=== PATIENT | female | born 1945 | race Two or more races ===

== ENCOUNTER 2018-07-26 15:40 | Inpatient (IN) | payer OTHER, MEDICAID | END 2018-07-28 16:30 | disposition home or self-care (01) | LOC: ER 15:40 → TELE 07-27 10:10 → TELE-CENTR 07-27 17:32 | DX: K62.5 Hemorrhage of anus and rectum (principal); D62 Acute posthemorrhagic anemia; I10 Essential (primary) hypertension; E11.9 Type 2 diabetes mellitus without complications ==

== ENCOUNTER 2022-10-14 10:57 | Emergency (ER) | payer OTHER, MEDICAID ==
[~2022-10-14] VITALS: Ht 152.4 cm; Wt 115.0 kg
[~2022-10-14 10:57] MED LIST: ASPI81CH43 GT; ATEN-60 PO; BUPR-160 PO; DOCU100T15 PO; LORA-622 PO; MAGN400T40 PO; MELO1TAB56 PO; OMEP20TA PO; PRAV20TA3 PO
[2022-10-14 11:15] VITALS: BP 151/73
[2022-10-14 11:47] LABS: Basophils # (auto) 0.1 10 ^3/uL (0-0.2); Basophils % (auto) 0.7 % (0.0-2.0); Eosinophils # (auto) 0 10 ^3/uL (0-0.8); Eosinophils % (auto) 0.6 % (0.0-7.0); Hematocrit 38.8 % (36.0-46.0); Hemoglobin 12.7 g/dL (12.2-16.2); Lymphocytes # (auto) 1.5 10 ^3/uL (0.4-5.4); Lymphocytes % (auto) 21.7 % (10.0-50.0); Mean Corpuscular Hemoglobin 30.4 pg (28.0-32.0); Mean Corpuscular Hgb Conc. 32.8 g/dL (32.0-36.0); Mean Corpuscular Volume 92.6 fL (80.0-100.0); Monocytes # (auto) 0.3 10 ^3/uL (0-1.3); Monocytes % (auto) 4.5 % (0.0-12.0); Neutrophils # (auto) 5.1 10 ^3/uL (1.6-8.6); Neutrophils % (auto) 72.5 % (37.0-80.0); Nucleated Red Blood Cells % 0.1 %; Red Blood Cells 4.19 10^6/uL (4.0-5.20)
[2022-10-14 12:00] LABS: Albumin 3.8 g/dL (3.4-5.0); Calcium 9.1 mg/dL (8.5-10.1); Potassium 4.3 mmol/L (3.5-5.1)
[2022-10-14 12:11] LABS: BUN/Creatinine Ratio 19.8 (10.0-20.0); Bilirubin, Total 0.2 mg/dL (0.2-1.0); Total Protein 7.6 g/dL (6.4-8.2)
[2022-10-14 12:40] LABS: Urine Bacteria NONE SEEN /hpf (None Seen); Urine Blood Negative /uL (Negative); Urine Specific Gravity 1.011 (1.001-1.035); Urine WBC <1 /hpf (0 - 5)
== END 2022-10-14 15:01 | disposition left against medical advice (07) ==
LOC: ER 10:57
DX: R22.43 Localized swelling, mass and lump, lower limb, bilateral (principal); R30.0 Dysuria; Z53.21 Procedure and treatment not carried out due to patient leaving prior to being seen by health care provider
CPT/HCPCS: 36415; 71045; 80053; 81001; 83605; 83735; 84484; 85025; 93005

== ENCOUNTER 2024-09-05 10:30 | Emergency (ER) | payer OTHER, MEDICAID ==
[~2024-09-05] VITALS: Ht 121.9 cm; Wt 87.9 kg
[~2024-09-05 10:30] MED LIST changes: -BUPR-160 PO; +BUPR-346 PO; +MELO15TA29 PO; -MELO1TAB56 PO
--- NOTE | 2024-09-05 11:18 | ED.PDOC ---
Joyce. trauma (HPI) HPI Comments 79y F who presents to the ED for chief complaint of fall injury. Pt states she had mechanical fall at approx 0930 this AM. Pt states she tripped and fell on doorstep as she fell to the floor, she landed on her L hand to help break her fall and states during fal, she grazed the L side of her face with noted bruise on L cheek but no noted loss of consciousness. Pt states since fall, she has been having L arm pain, rating the pain 10/10, constant, non-radiating, with no associated exacerbating or relieving factors. Pt otherwise denies headache, dizziness, nausea, vomiting, chest pain, shortness of breath, or any associated symptoms. Pt in the ED, has noted BP of 144/51 but otherwise has noted stable vitals in the ED. Pt in the ED, is noted to walk with walker. Pt otherwise denies any other symptoms at this time. Chief Complaint: Fall Injury Time Seen by MD: 11:15 Primary Care Provider: LUL Reviewed notes: Nurses Notes, Medications, Allergies Allergies: Coded Allergies: NO KNOWN ALLERGIES (Unverified , 07/27/18) Home Meds Active Scripts Hydrocodone-Acetaminophen (Hydrocodone Bitartrate/AC 5-325 mg) 1 Tab Tab, 1 TAB PO Q8HP PRN for 7 Days, #21 TAB Prov:GLENNA PINEDA MD 09/05/24 Reported Medications Meloxicam (Meloxicam) 15 Mg Tab, 15 MG PO, TAB 07/27/18 Loratadine (Claritin) 10 Mg Tab, 10 MG PO, TAB 07/27/18 Aspirin (Asa) 81 Mg Ch, 81 MG GT DAILY 07/27/18 Pravastatin Sodium (PRAVACHOL TABLET) 20 Mg Tb, 1 TAB PO DAILY, #30 TAB 5 Refills 07/27/18 Docusate Sodium (Docusate Sodium) 100 Mg Tab, 100 MG PO BIDP PRN for FOR CONSTIPATION for 30 Days, MG 07/27/18 Atenolol (Atenolol) 25 Mg Tab, 25 MG PO BID for 30 Days, MG 07/27/18 Omeprazole (Gnp Omeprazole) 20 Mg Tab, 1 TAB PO DAILY, #90 TAB 1 Refill 07/27/18 Bupropion Hcl (Bupropion Hcl) 100 Mg Tab, 150 MG PO BID for 30 Days, MG 07/27/18 Magnesium Oxide (MAGNESIUM OXIDE) 400 Mg Tab, 1 TAB PO BID, #60 TAB 5 Refills 07/27/18 Information Source: Patient Mode of Arrival: Ambulatory Brought in by: self Severity: Moderate Timing: Hours Duration: Since onset Prehospital treatment: None Location: (L) Shoulder Location of laceration: None Mechanism: Fall Associated signs and symtoms: None Past Medical History PAST MEDICAL HISTORY: Anemia, Anxiety, Arthritis, DM, HTN Surgical History: Hysterectomy, Tubal Ligation NUTRITION CONSULTANT History: Denies all NUTRITION CONSULTANT Hx Family History Family History: Unknown Social History Smoker: Non-Smoker Alcohol: Denies ETOH Use Drugs: Denies Drug Use Lives In: Home Constitutional: denies: chills, diaphoresis, fatigue, fever, malaise, sweats, weakness, others EENTM: denies: blurred vision, double vision, ear bleeding, ear discharge, ear drainage, ear pain, ear ringing, eye pain, eye redness, hearing loss, mouth pain, mouth swelling, nasal discharge, nose bleeding, nose congestion, nose pain, photophobia, tearing, throat pain, throat swelling, voice changes, others Respiratory: denies: cough, hemoptysis, orthopnea, SOB at rest, shortness of breath, SOB with excertion, stridor, wheezing, others Cardiovascular: denies: chest pain, dizzy spells, diaphoresis, Dyspnea on exertion, edema, irregular heart beat, left arm pain, lightheadedness, palpitations, PND, syncope, others Gastrointestinal: denies: abdomen distended, abdominal pain, blood streaked bowels, constipated, diarrhea, dysphagia, difficulty swallowing, hematemesis, melena, nausea, poor appetite, poor fluid intake, rectal bleeding, rectal pain, vomiting, others Genitourinary: denies: abnormal vagina bleeding, burning, dyspareunia, dysuria, flank pain, frequency, hematuria, incontinence, pain, , vagina discharge, urgency, others Neurological: denies: dizziness, fainting, headache, left sided numbness, left sided weakness, numbness, paresthesia, pre-existing deficit, right sided numbness, right sided weakness, seizure, speech problems, tingling, tremors, weakness, others Musculoskeletal: reports: joint pain (L shoulder); denies: back pain, gout, joint swelling, muscle pain, muscle stiffness, neck pain, others Integumetry: denies: bruises, change in color, change in hair/nails, dryness, laceration, lesions, lumps, rash, wounds, others Allergic/Immunocompromised: denies: Difficulty Healing, Frequent Infections, Hives, Itching, others Hematologic/Lymphatic: denies: anemia, blood clots, easy bleeding, easy bruising, swollen glands, others Endocrine: denies: excessive hunger, excessive sweating, excessive thirst, excessive urination, flushing, intolerance to cold, intolerance to heat, unexplained weight gain, unexplained weight loss, others Psychiatric: denies: anxiety, bipolar disorder, depression, hopeless, panic disorder, schizophrenia, sleepless, suicidal, others All Other Systems: Reviewed and Negative Physical Exam General Appearance: Moderate Distress HEENT: Normal ENT Inspection, Pharynx Normal, TMs Normal Neck: Full Range of Motion, Non-Tender, Normal, Normal Inspection Respiratory: Chest Non-Tender, Lungs Clear, No Accessory Muscle Use, No Respiratory Distress, Normal Breath Sounds Cardiovascular: No Edema, No JVD, No Murmur, No Gallop, Normal Peripheral Pulses, Regular Rate/Rhythm Breast Exam: Deferred Gastrointestinal: No Organomegaly, Non Tender, No Pulsatile Mass, Normal Bowel Sounds, Soft Genitalia: Deferred Pelvic: Deferred Rectal: Deferred Extremities: No calf tenderness, Normal capillary refill, No pedal edema Musculoskeletal : Location: Left Extremity Location: Arm Apperance: Swelling, Limited ROM, Tenderness: Severe Neurologic: Alert, brazing machine operator automatic II-XII nml as Tested, No Motor Deficits, Normal Affect, Normal Mood, No Sensory Deficits Cerebellar Function: Normal Reflexes: Normal Skin: Dry, Normal Color, Warm Lymphatic: No Adenopathy Was a procedure done? Was a procedure done?: No Differential Diagnosis Multiple Trauma: Closed Head Injury, Fractures, Abrasions, Contusion, Hematoma X-Ray, Labs, Meds, VS Vital Signs Date Time Temp Pulse Resp B/P (MAP) Pulse Ox O2 Delivery O2 Flow Rate FiO2 09/05/24 10:51 97.7 71 19 144/51 (82) 98 97.7 XY L HUMERUS XRAY, IMPRESSION: Acute distal humerus fracture. At this time, we did send the results to the orthopedic surgeon The patient was being discharged after being splinted and placed in a sling The patient was given [place] here in the emergency department's as well as prescription for [place] The patient will return to the emergency department's the condition worsens. Images Reviewed?: Images reviewed and evaluated by me Time of 1ST Reevaluation: 11:45 Reevaluation 1ST: Unchanged Patient Education/Counseling: Diagnosis, Treatment, Prognosis, Need For Follow Up Family Education/Counseling: No Family Present Additional Information -Reviewed patient's previous visit(s): - The following tests were ordered, and results were reviewed by me: Lt humerus x-ray - Additional information was gathered from interviewing the following independent Historian: none - I reviewed and agreed with the following test results read by other provider: none - I discussed treatments and results with medical personnel and: patient Comprehensive systems review obtained and negative except for what is stated in the HPI. Departure 1 Departure Time of Disposition: 11:56 Impression: Primary Impression: Left humeral fracture Qualified Codes: S42.492A - Other displaced fracture of lower end of left humerus, initial encounter for closed fracture Disposition: 01 HOME / SELF CARE / HOMELESS Condition: Fair e-Prescriptions Hydrocodone-Acetaminophen (Hydrocodone Bitartrate/AC 5-325 mg) 1 Tab Tab 1 TAB PO Q8HP PRN for 7 Days, #21 TAB Prov: GLENNA PINEDA MD 09/05/24 Discharged With: Self Critical Care Note Critical Care Time?: No Stability Stability form required: No Heart Score Heart Score: Heart Score Response (Comments) Value History N/A 0 EKG N/A 0 Age N/A 0 Risk Factors N/A 0 Troponin N/A 0 Total 0 I personally scribed for GLENNA PINEDA MD (BONY) on 09/05/24 at 11:18. Electronically submitted by Fernando Peña ([email or web address]). I personally scribed for GLENNA PINEDA MD (BONY) on 09/05/24 at 11:19. E lectronically submitted by Fernando Peña ([email or web address]). I personally scribed for GLENNA PINEDA MD (BONY) on 09/05/24 at 11:48. Electronically submitted by Fernando JERONIMO). GLENNA PINEDA MD Sep 05, 2024 11:18
--- NOTE | 2024-09-05 11:24 | DVH ---
XY L HUMERUS XRAY, INDICATION: TRAUMA TECHNICAL DATA: Frontal and lateral views were obtained of the left humerus. COMPARISON: None FINDINGS: There is acute oblique fracture of the distal humeral diaphysis. IMPRESSION: Acute distal humerus fracture.
[2024-09-05] MEDS ORDERED: HYDR-4902 PO (11:52)
[2024-09-05 12:15] VITALS: BP 140/56; PULSE 82; RESP 18; TEMP 97.9; O2SAT 99
[2024-09-05] MEDS: HYDROcodone-ACET 10/325MG TAB PO ONE (12:15)
== END 2024-09-05 12:48 | disposition home or self-care (01) ==
LOC: ER 10:30
DX: S42.402A Unspecified fracture of lower end of left humerus, initial encounter for closed fracture (principal); I10 Essential (primary) hypertension; E11.9 Type 2 diabetes mellitus without complications; Z79.82 Long term (current) use of aspirin; Z79.899 Other long term (current) drug therapy; Z90.710 Acquired absence of both cervix and uterus; W18.39XA Other fall on same level, initial encounter; Y93.89 Activity, other specified; Y92.89 Other specified places as the place of occurrence of the external cause; Y99.8 Other external cause status
CPT/HCPCS: 29105; 73060

== ENCOUNTER 2024-09-20 17:56 | Emergency (ER) | payer OTHER, MEDICAID ==
[~2024-09-20] VITALS: Ht 152.4 cm; Wt 89.7 kg
[~2024-09-20 17:56] MED LIST changes: +HYDR-4902 PO
[2024-09-20 18:12] VITALS: BP 137/47; RESP 20; TEMP 98.2; O2SAT 9
[2024-09-20 18:26] VITALS: PULSE 77
--- NOTE | 2024-09-20 18:44 | ED.PDOC ---
History of Present Illness HPI Comments 79 y/o obese F, with a history of anemia, arthritis, DM, and HTN, presents with relative for c/o bilateral leg swelling, today. Per relative, patient was sent by her PCP, due to concerns of recent onset of leg swelling for the past few days, while attending a f/u in-person office appointment for surgical con sultation for left elbow she fractured on 09/05/24. Patient is reported to have been sleeping in a recline seated position, due to history of breathing-mask use making it inconvenient for her to sleeping in a normal supine position. Patient denies any recent travel, additional injuries, history of blood thinner use, or any further relevant information. She denies any leg or chest pain, shortness of breath, or other associated symptoms at this time. Chief Complaint: Extremity Swelling Time Seen by MD: 18:25 Primary Care Provider: LARA Reviewed Notes: Nurses Notes, Medications, Allergies Allergies: Coded Allergies: NO KNOWN ALLERGIES (Unverified , 07/27/18) Home Meds Active Scripts Hydrocodone-Acetaminophen (Hydrocodone Bitartrate/AC 5-325 mg) 1 Tab Tab, 1 TAB PO Q8HP PRN for 7 Days, #21 TAB Prov:GLENNA PINEDA MD 09/05/24 Reported Medications Meloxicam (Meloxicam) 15 Mg Tab, 15 MG PO, TAB 07/27/18 Loratadine (Claritin) 10 Mg Tab, 10 MG PO, TAB 07/27/18 Aspirin (Asa) 81 Mg Ch, 81 MG GT DAILY 07/27/18 Pravastatin Sodium (PRAVACHOL TABLET) 20 Mg Tb, 1 TAB PO DAILY, #30 TAB 5 Refills 07/27/18 Docusate Sodium (Docusate Sodium) 100 Mg Tab, 100 MG PO BIDP PRN for FOR CONSTIPATION for 30 Days, MG 07/27/18 Atenolol (Atenolol) 25 Mg Tab, 25 MG PO BID for 30 Days, MG 07/27/18 Omeprazole (Gnp Omeprazole) 20 Mg Tab, 1 TAB PO DAILY, #90 TAB 1 Refill 07/27/18 Bupropion Hcl (Bupropion Hcl) 100 Mg Tab, 150 MG PO BID for 30 Days, MG 07/27/18 Magnesium Oxide (MAGNESIUM OXIDE) 400 Mg Tab, 1 TAB PO BID, #60 TAB 5 Refills 07/27/18 Information Source: Patient Mode of Arrival: Ambulatory Past Medical History PAST MEDICAL HISTORY: Anemia, Anxiety, Arthritis, DM, HTN Surgical History: Hysterectomy, Tubal Ligation SAUTE CHEF History: Denies all SAUTE CHEF Hx Family History Family History: Unknown Social History Smoker: Non-Smoker Alcohol: Denies ETOH Use Drugs: Denies Drug Use Lives In: Home All Other Systems: Reviewed and Negative (Comprehensive systems review obtained and negative except for what is stated in the HPI.) Physical Exam General Appearance: No Apparent Distress, Normal HEENT: Normal ENT Inspection, Pharynx Normal, TMs Normal Neck: Full Range of Motion, Non-Tender, Normal, Normal Inspection Respiratory: Chest Non-Tender, Lungs Clear, No Accessory Muscle Use, No Respiratory Distress, Normal Breath Sounds Cardiovascular: No Edema, No JVD, No Murmur, No Gallop, Normal Peripheral Pulses, Regular Rate/Rhythm Breast Exam: Deferred Gastrointestinal: No Organomegaly, Non Tender, No Pulsatile Mass, Normal Bowel Sounds, Soft Genitalia: Deferred Pelvic: Deferred Rectal: Deferred Extremities: Leg edema (1+ bilateral lower extremities), No calf tenderness, Normal capillary refill, Normal inspection, Normal range of motion, Non-tender, Other (current splint in left-elbow) Musculoskeletal : Apperance: Normal Neurologic: Alert, hotel services sales representative II-XII nml as Tested, No Motor Deficits, Normal Affect, Normal Mood, No Sensory Deficits Cerebellar Function: Normal Reflexes: Normal Skin: Dry, Normal Color, Warm Lymphatic: No Adenopathy Was a procedure done? Was a procedure done?: No Differential Dx Considerations may include: CHF, DVT, fluid retention, among others X-Ray, Labs, Meds, VS Vital Signs Date Time Temp Pulse Resp B/P (MAP) Pulse Ox O2 Delivery O2 Flow Rate FiO2 09/20/24 18:26 77 09/20/24 18:12 98.2 73 20 137/47 (77) 9 98.2 Lab Test 09/20/24 18:50 Range/Units White Blood Count 8.9 4.4-10.8 10^3/uL Red Blood Count 4.07 4.0-5.20 10^6/uL Hemoglobin 12.0 L 12.2-16.2 g/dL Hematocrit 36.8 36.0-46.0 % Mean Corpuscular Volume 90.5 80.0-100.0 fL Mean Corpuscular Hemoglobin 29.5 28.0-32.0 pg Mean Corpuscular Hemoglobin Concent 32.6 32.0-36.0 g/dL Red Cell Distribution Width 15.7 H 11.8-14.3 % Platelet Count 334 140-450 10^3/uL Mean Platelet Volume 6.9 6.9-10.8 fL Neutrophils (%) (Auto) 75.2 37.0-80.0 % Lymphocytes (%) (Auto) 16.3 10.0-50.0 % Monocytes (%) (Auto) 6.5 0.0-12.0 % Eosinophils (%) (Auto) 1.1 0.0-7.0 % Basophils (%) (Auto) 0.9 0.0-2.0 % Neutrophils # (Auto) 6.7 1.6-8.6 10 ^3/uL Lymphocytes # (Auto) 1.5 0.4-5.4 10 ^3/uL Monocytes # (Auto) 0.6 0-1.3 10 ^3/uL Eosinophils # (Auto) 0.1 0-0.8 10 ^3/uL Basophils # (Auto) 0.1 0-0.2 10 ^3/uL Nucleated Red Blood Cells 0.0 % Prothrombin Time 10.9 9.3-11.8 sec Prothrombin Time INR 1.03 0.9-1.15 Activated Partial Thromboplast Time 25.6 24.5-34.5 SEC Sodium Level 143 136-145 mmol/L Potassium Level 4.1 3.5-5.1 mmol/L Chloride Level 106 98-107 mmol/L Carbon Dioxide Level 30 20-31 mmol/L Anion Gap 7 5-15 Blood Urea Nitrogen 16 9-23 mg/dL Creatinine 1.00 0.550-1.02 mg/dL Glomerular Filtration Rate Calc 57 >90 mL/min BUN/Creatinine Ratio 16.0 10.0-20.0 Serum Glucose 111 H 74-106 mg/dL Calcium Level 9.8 8.7-10.4 mg/dL Total Bilirubin 0.4 0.2-1.0 mg/dL Aspartate Amino Transferase (AST) 13 13-40 U/L Alanine Aminotransferase (ALT) 19 7-40 U/L Alkaline Phosphatase 158 H 46-116 U/L Troponin I High Sensitivity 3 L </=34 ng/L B-Type Natriuretic Peptide 35.39 0-100 pg/mL Total Protein 7.3 5.7-8.2 g/dL Albumin 4.5 3.2-4.8 g/dL Time of 1ST Reevaluation: 18:55 Reevaluation 1ST: Unchanged Patient Education/Counseling: Diagnosis, Treatment Family Education/Counseling: Diagnosis, Treatment Departure 1 Departure Time of Disposition: 20:14 Impression: Primary Impression: Peripheral edema Additional Impression: Left humeral fracture Disposition: 01 HOME / SELF CARE / HOMELESS Condition: Stable Discharged With: Self, Relative Critical Care Note Critical Care Time?: No Stability Stability form required: No Heart Score Heart Score: Heart Score Response (Comments) Value History Moderate Suspicious 1 EKG Normal 0 Age >65 2 Risk Factors 1 or 2 risk factors 1 Troponin Normal limit 0 Total 4 I personally scribed for ARLENE BROWN MD ([email or web address]) on 09/20/24 at 18:44. Electronically submitted by Andreas Soto ([email or web address]). ARLENE BROWN MD Sep 20, 2024 18:44
[2024-09-20 19:02] LABS: Basophils # (auto) 0.1 10 ^3/uL (0-0.2); Basophils % (auto) 0.9 % (0.0-2.0); Eosinophils # (auto) 0.1 10 ^3/uL (0-0.8); Eosinophils % (auto) 1.1 % (0.0-7.0); Hematocrit 36.8 % (36.0-46.0); Lymphocytes # (auto) 1.5 10 ^3/uL (0.4-5.4); Lymphocytes % (auto) 16.3 % (10.0-50.0); Mean Corpuscular Hemoglobin 29.5 pg (28.0-32.0); Mean Corpuscular Hgb Conc. 32.6 g/dL (32.0-36.0); Mean Corpuscular Volume 90.5 fL (80.0-100.0); Monocytes # (auto) 0.6 10 ^3/uL (0-1.3); Monocytes % (auto) 6.5 % (0.0-12.0); Neutrophils # (auto) 6.7 10 ^3/uL (1.6-8.6); Neutrophils % (auto) 75.2 % (37.0-80.0); Platelet Count (auto) 334 10^3/uL (140-450); Red Blood Cells 4.07 10^6/uL (4.0-5.20); Red Cell Distribution Width 15.7 % (11.8-14.3); White Blood Cell 8.9 10^3/uL (4.4-10.8)
[2024-09-20 19:21] LABS: INR 1.03 (0.9-1.15); Partial Thromboplastin Time 25.6 SEC (24.5-34.5); Prothrombin Time 10.9 sec (9.3-11.8)
[2024-09-20 19:24] LABS: Alanine Aminotransferase 19 U/L (7-40); Albumin 4.5 g/dL (3.2-4.8); Anion Gap 7 (5-15); Aspartate Aminotransferase 13 U/L (13-40); Blood Urea Nitrogen 16 mg/dL (9-23); Calcium 9.8 mg/dL (8.7-10.4); Carbon Dioxide 30 mmol/L (20-31); Chloride 106 mmol/L (98-107); Potassium 4.1 mmol/L (3.5-5.1); Sodium 143 mmol/L (136-145); Total Protein 7.3 g/dL (5.7-8.2)
[2024-09-20 19:25] LABS: Alkaline Phosphatase 158 U/L (46-116); Bilirubin, Total 0.4 mg/dL (0.2-1.0); Glucose 111 mg/dL (74-106)
--- NOTE | 2024-09-21 10:08 | ECG ---
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
== END 2024-09-21 00:04 | disposition home or self-care (01) ==
LOC: ER 17:56
DX: S42.302A Unspecified fracture of shaft of humerus, left arm, initial encounter for closed fracture (principal); R60.9 Edema, unspecified; F41.9 Anxiety disorder, unspecified; E11.9 Type 2 diabetes mellitus without complications; M19.90 Unspecified osteoarthritis, unspecified site; Z90.710 Acquired absence of both cervix and uterus; Z79.899 Other long term (current) drug therapy; Z79.82 Long term (current) use of aspirin; I10 Essential (primary) hypertension; X58.XXXA Exposure to other specified factors, initial encounter; Y93.89 Activity, other specified; Y92.89 Other specified places as the place of occurrence of the external cause; Y99.8 Other external cause status
CPT/HCPCS: 36415; 80053; 83880; 84484; 85025; 85610; 85730; 93005